=== PATIENT | female | born 1990 | race African-American/Black ===

== ENCOUNTER 2022-04-01 16:25 | Emergency (ER) | payer OTHER ==
[2022-04-01 16:41] VITALS: BMI 25.2
[2022-04-01] MEDS ORDERED: METOCLOPRAMIDE HCL INJECTION 10 MG/2 ML VIAL IVPUSH ONE (17:29)
[2022-04-01] MEDS ORDERED: SODIUM CHLORIDE 0.9% 500 ML INFUS.BAG IV ONE (17:49)
[2022-04-01 18:13] LABS: BASO % 0.8 % (0-2.0); HEMATOCRIT 42.7 % (32.4-45.2); HEMOGLOBIN 14.1 GM/dL (10.7-15.3); MCH 26.9 pg (25.7-33.7); MCHC 33.1 g/dl (32.0-36.0); MEAN CELL VOLUME 81.3 fl (80-96); MONO % 5.5 % (3.8-10.2); NEUT % 62.7 % (42.8-82.8); PLATELET COUNT 474 10^3/uL (134-434); RBC 5.26 M/mm3 (3.60-5.2); RDW 13.1 % (11.6-15.6); WHITE BLOOD COUNT 11.4 K/mm3 (4.0-10.0)
[2022-04-01 18:35] LABS: ALBUMIN 3.8 g/dl (3.4-5.0); BLOOD UREA NITROGEN 16.3 mg/dL (7-18); CALCIUM 9.8 mg/dL (8.5-10.1)
[2022-04-01 18:37] VITALS: BP 142/91; PULSE 98; TEMP 97.5
[2022-04-01 18:38] LABS: CREATININE 0.7 mg/dL (0.55-1.3)
[2022-04-01 18:40] LABS: BILIRUBIN,TOTAL 0.2 mg/dL (0.2-1); TOT PROT 8.5 g/dl (6.4-8.2)
== END 2022-04-01 19:38 | disposition home or self-care (01) ==
LOC: JER 16:25
DX: E86.0 Dehydration (principal); R00.0 Tachycardia, unspecified; R11.0 Nausea
CPT/HCPCS: 36415; 80053; 84439; 84443; 85025; 93005; 93010; 99284-25

== ENCOUNTER 2022-10-15 11:41 | Emergency (ER) | payer OTHER ==
[2022-10-15 11:59] VITALS: BP 129/80; PULSE 79; RESP 18; TEMP 98.2; BMI 27.1
[2022-10-15 14:12] LABS: BASO % 1.1 % (0-2.0); EOS % 2.4 % (0-4.5); HEMATOCRIT 37.6 % (32.4-45.2); HEMOGLOBIN 12.1 GM/dL (10.7-15.3); LYMPH % 43.1 % (8-40); MCH 26.9 pg (25.7-33.7); MCHC 32.3 g/dl (32.0-36.0); MEAN CELL VOLUME 83.1 fl (80-96); MEAN PLT VOLUME 7.8 fl (7.5-11.1); NEUT % 46.4 % (42.8-82.8); PLATELET COUNT 344 10^3/uL (134-434); RBC 4.52 M/mm3 (3.60-5.2); RDW 13.5 % (11.6-15.6); WHITE BLOOD COUNT 6.7 K/mm3 (4.0-10.0)
[2022-10-15 14:31] LABS: CALCIUM 9.5 mg/dL (8.5-10.1)
[2022-10-15 14:33] LABS: ALBUMIN 3.2 g/dl (3.4-5.0); BLOOD UREA NITROGEN 9.6 mg/dL (7-18)
[2022-10-15 14:37] LABS: BILIRUBIN,TOTAL 0.1 mg/dL (0.2-1)
[2022-10-15 14:38] LABS: TOT PROT 7.5 g/dl (6.4-8.2)
[2022-10-15 14:53] LABS: CREATININE 0.7 mg/dL (0.55-1.3)
[2022-10-15 14:58] LABS: EPI CELLS 24 /uL (0-25.1); HYALINE CASTS 0 /uL (0-3.1); PH,URINE 5.5 (5.0-8.0); URINE APPEARANCE CLEAR; URINE BACTERIA 271 /uL (0-1359); URINE BILIRUBIN NEGATIVE (NEGATIVE); URINE COLOR YELLOW; URINE GLUCOSE (UA) 3+ (NEGATIVE); URINE KETONE 1+ (NEGATIVE); URINE LEUK ESTERASE NEGATIVE (NEGATIVE); URINE NITRITE NEGATIVE (NEGATIVE); URINE PROTEIN 2+ (NEGATIVE); URINE RBC 203 /uL (0-23.9); URINE UROBILINOGEN 0.2 mg/dL (0.2-1.0); URINE WBC 34 /uL (0-25.8)
== END 2022-10-15 17:16 | disposition home or self-care (01) ==
LOC: JER 11:41
DX: O26.851 Spotting complicating pregnancy, first trimester (principal); Z3A.08 8 weeks gestation of pregnancy
CPT/HCPCS: 36415; 76817-TC; 80053; 81003; 84702; 84703; 85025; 86850; 86900; 86901; 87086; 99284-25

== ENCOUNTER 2023-06-13 11:52 | Emergency (ER) | payer OTHER ==
[2023-06-13 12:05] VITALS: BP 135/96; PULSE 106; RESP 18; TEMP 97.8; BMI 25.8
[2023-06-13] MEDS ORDERED: KETOROLAC TROMETHAMINE 15 MG/ML VIAL IM ONE (12:36)
[2023-06-13] MEDS ORDERED: KETOROLAC TROMETHAMINE 15 MG/ML VIAL ONE (12:51)
== END 2023-06-13 13:34 | disposition home or self-care (01) ==
LOC: JER 11:52
PROC: 3E0233Z Introduction of Anti-inflammatory into Muscle, Percutaneous Approach (ICD-10-PCS; principal; 2023-06-13)
DX: S30.0XXA Contusion of lower back and pelvis, initial encounter (principal); M54.50 Low back pain, unspecified; M54.2 Cervicalgia; W01.0XXA Fall on same level from slipping, tripping and stumbling without subsequent striking against object, initial encounter; Y92.002 Bathroom of unspecified non-institutional (private) residence as the place of occurrence of the external cause
CPT/HCPCS: 72100-TC-FY; 82962; 99284-25

== ENCOUNTER 2023-06-14 12:14 | Emergency (ER) | payer OTHER ==
[2023-06-14] MEDS ORDERED: FAMOTIDINE 20 MG/50 ML IVPB 20 MG/50 ML MG IVPB ONE ×2 (12:35→12:43)
[2023-06-14 12:36] VITALS: BMI 25.0
[2023-06-14] MEDS ORDERED: methylPREDNISolone NA SUCC 125 MG/2 ML VIAL IVPUSH ONE (12:36)
[2023-06-14] MEDS ORDERED: diphenhydrAMINE HCL 25 MG CAPSULE (FP) PO ONE ×2 (12:36→12:42)
[2023-06-14] MEDS ORDERED: SODIUM CHLORIDE 0.9% 500 ML INFUS.BAG IV ONE (12:36)
[2023-06-14] MEDS ORDERED: methylPREDNISolone NA SUCC 125 MG/2 ML VIAL ONE (12:43)
[2023-06-14 15:51] VITALS: BP 135/89; PULSE 93; RESP 16; TEMP 98.2
== END 2023-06-14 15:51 | disposition home or self-care (01) ==
LOC: JER 12:14
PROC: 3E033GC Introduction of Other Therapeutic Substance into Peripheral Vein, Percutaneous Approach (ICD-10-PCS; principal; 2023-06-14)
PROC: 3E033GC Introduction of Other Therapeutic Substance into Peripheral Vein, Percutaneous Approach (ICD-10-PCS; 2023-06-14)
DX: R22.0 Localized swelling, mass and lump, head (principal); T78.40XA Allergy, unspecified, initial encounter
CPT/HCPCS: 93005; 93010; 99284-25